=== PATIENT | female | born 1985 | race African-American/Black ===

== ENCOUNTER 2023-01-03 00:50 | Inpatient (IN) | payer BC, OTHER ==
[2023-01-03] MEDS ORDERED: ELECTROLYTE-148 SOLN 500 ML IV ONE (01:40)
[2023-01-03] MEDS ORDERED: ELECTROLYTE-148 SOLN 1,000 ML IV SCH ×3 (02:10→03:30)
[2023-01-03 02:11] LABS: BASO % 0.9 % (0-2.0); EOS % 0.6 % (0-4.5); HEMATOCRIT 34.1 % (32.4-45.2); HEMOGLOBIN 11.7 GM/dL (10.7-15.3); LYMPH % 29.3 % (8-40); MCH 31.9 pg (25.7-33.7); MCHC 34.4 g/dl (32.0-36.0); MEAN CELL VOLUME 92.8 fl (80-96); MEAN PLT VOLUME 10.6 fl (7.5-11.1); NEUT % 62.2 % (42.8-82.8); PLATELET COUNT 182 10^3/uL (134-434); RBC 3.68 M/mm3 (3.60-5.2); RDW 14.4 % (11.6-15.6); WHITE BLOOD COUNT 4.8 K/mm3 (4.0-10.0)
[2023-01-03 02:17] LABS: INR 0.9 (0.83-1.09); PROTHROMBIN TIME (PATIENT) 10.5 SEC (9.7-13.0)
[2023-01-03 02:22] VITALS: BMI 32.9
[2023-01-03 02:28] LABS: POTASSIUM 4.3 mmol/L (3.5-5.1)
[2023-01-03 02:29] LABS: CALCIUM 8.9 mg/dL (8.5-10.1)
[2023-01-03 02:30] LABS: BLOOD UREA NITROGEN 4.9 mg/dL (7-18)
[2023-01-03 02:33] LABS: CREATININE 0.6 mg/dL (0.55-1.3)
[2023-01-03] MEDS ORDERED: CITRIC ACID/SODIUM CITRATE 30 ML UNIT-DOSE CUP PO ONE (03:21)
[2023-01-03] MEDS ORDERED: morphine SULFATE/PF 1 MG/2 ML (2cc Syringe - QUVA) ONE (03:49)
[2023-01-03] MEDS ORDERED: ONDANSETRON 4 MG/2 ML VIAL IVPUSH PRN (04:47)
[2023-01-03] MEDS ORDERED: ACETAMINOPHEN 325 MG TABLET (FP) PO PRN (05:03)
[2023-01-03] MEDS ORDERED: SIMETHICONE 80 MG TAB.CHEW (FP) PO PRN (05:03)
[2023-01-03] MEDS ORDERED: IBUPROFEN 600 MG TABLET (FP) PO PRN (05:03)
[2023-01-03] MEDS ORDERED: SENNOSIDES/DOCUSATE COMBO (SENNA PLUS) TABLET (UD) PO PRN (05:03)
[2023-01-03] MEDS ORDERED: METHYLERGONOVINE MALEATE 0.2 MG/1 ML AMP IM PRN (05:03)
[2023-01-03] MEDS ORDERED: IBUPROFEN 800 MG/8 ML IJ IVPB PRN (05:03)
[2023-01-03] MEDS ORDERED: ACETAMINOPHEN 1000 MG/100 ML BAG IVPB PRN (05:07)
[2023-01-03] MEDS: OXYTOCIN 20 UNITS in 0.9% NS 20 UNIT/1,000 ML INFUS.BAG IV SCH ×2 (05:55→14:26)
[2023-01-03] MEDS: FERROUS SO4 325 MG TABLET (FP) PO SCH (10:11)
[2023-01-03] MEDS: PRENATAL VITAMINS W/ FOLIC ACID TABLET (FP) PO SCH (10:11)
[2023-01-03] MEDS ORDERED: oxyCODONE HCL 5 MG TABLET PO PRN ×2 (17:03)
[2023-01-04] MEDS ORDERED: BISACODYL 10 MG SUPP.RECT RC PRN (05:03)
[2023-01-04 08:43] LABS: BASO % 0.2 % (0-2.0); EOS % 0.3 % (0-4.5); HEMATOCRIT 30.7 % (32.4-45.2); HEMOGLOBIN 10.3 GM/dL (10.7-15.3); MCH 31.4 pg (25.7-33.7); MCHC 33.4 g/dl (32.0-36.0); MONO % 5.9 % (3.8-10.2); NEUT % 78.6 % (42.8-82.8); PLATELET COUNT 162 10^3/uL (134-434); RBC 3.27 M/mm3 (3.60-5.2); RDW 14.1 % (11.6-15.6); WHITE BLOOD COUNT 8.4 K/mm3 (4.0-10.0)
[2023-01-04] MEDS: PRENATAL VITAMINS W/ FOLIC ACID TABLET (FP) PO SCH (09:20)
[2023-01-04] MEDS: FERROUS SO4 325 MG TABLET (FP) PO SCH (09:20)
[2023-01-04 11:24] VITALS: RESP 18
[2023-01-05] MEDS: FERROUS SO4 325 MG TABLET (FP) PO SCH (09:23)
[2023-01-05] MEDS: PRENATAL VITAMINS W/ FOLIC ACID TABLET (FP) PO SCH (09:23)
[2023-01-06] MEDS: FERROUS SO4 325 MG TABLET (FP) PO SCH (09:08)
[2023-01-06] MEDS: PRENATAL VITAMINS W/ FOLIC ACID TABLET (FP) PO SCH (09:08)
[2023-01-06 10:26] VITALS: BP 107/82; PULSE 78; TEMP 98.2
== END 2023-01-06 13:40 | disposition home or self-care (01) | DRG 788 ==
LOC: JLDR 00:50 → J3W 06:24
PROVIDERS: ADMIT Obstetrics & Gynecology; ATTEND Obstetrics & Gynecology
PROC: 10D00Z1 Extraction of Products of Conception, Low, Open Approach (ICD-10-PCS; principal; 2023-01-03)
DX: O76 Abnormality in fetal heart rate and rhythm complicating labor and delivery (principal); O48.0 Post-term pregnancy; Z3A.41 41 weeks gestation of pregnancy; Z37.0 Single live birth
CPT/HCPCS: 36415; 80048; 85025; 85610; 85730; 86780; 86850; 86900; 86901; 88307-TC